=== PATIENT | female | born 1935 | race Caucasian/White ===

== ENCOUNTER → 2020-03-25 | Outpatient (CLI) | payer MEDICARE ==
[2020-03-25 09:22] VITALS: BP 137/53
--- NOTE | 2020-03-26 17:09 | CARD ---
[place] [address] CARDIAC CATH REPORT Name: XENIA GODDARD Room: [facility]#: [id number] Admission: 03/25/20 Attend Phys: Bennett Khalil MD Discharge: Date of : 37 Report #: [id number] THIS REPORT FOR: //name// cc: Raoul Marx Bradley Dean DO ~ CC: Raoul Khalil DATE OF SERVICE: 03/25/2020 PROCEDURE: Implantable loop recorder removal. INDICATION: Implantable loop recorder at end of life. DESCRIPTION OF PROCEDURE: Following informed consent, the patient was brought to the cardiac holding area. The area of the chest wall was prepped and draped in sterile fashion. The LINQ loop recorder was easily identified under the skin. The area of the medial part of the LINQ was identified and the skin above that anesthetized with 1% lidocaine. An incision was made with a #10 blade. With minimal blunt dissection, the medial aspect of the LINQ recorder was exposed and removed with Vidhya forceps. The bleeding was minimal. The skin was then closed with Dermabond. The patient tolerated the procedure well without complication. IMPRESSION: 1. LINQ recorder at end of life. 2. Successful explantation of LINQ loop recorder. <ELECTRONICALLY SIGNED> By: Bennett Khalil MD, [facility] 03/26/20 1709 [id number] Caro Khalil MD, [facility] /nt
== END | disposition home or self-care (01) ==
LOC: M.CL 09:10
PROVIDERS: ATTEND Internal Medicine Cardiovascular Disease
DX: Z45.09 Encounter for adjustment and management of other cardiac device (principal)